=== PATIENT | male | born 1955 | race Two or more races ===

== ENCOUNTER 2023-06-14 10:13 | Day surgery (SDC) | payer OTHER ==
[~2023-06-14] VITALS: Ht 180.3 cm; Wt 97.5 kg
[2023-06-14] MEDS ORDERED: fentaNYL citrate 0.05 MG/ML VIAL ONE (11:41)
[2023-06-14] MEDS ORDERED: LIDOCAINE 2% 100 MG/5 ML UJET TP ONE ×2 (11:42→12:40)
[2023-06-14] MEDS: fentaNYL citrate 0.05 MG/ML VIAL IVP ONE (12:03)
== END 2023-06-14 12:44 | disposition home or self-care (01) ==
LOC: MDS 10:13 → MMU 10:13 → MDS 12:44
PROVIDERS: ATTEND Internal Medicine Gastroenterology
DX: R10.31 Right lower quadrant pain (principal); Z79.899 Other long term (current) drug therapy; Z98.890 Other specified postprocedural states
CPT/HCPCS: 45378; J3010